=== PATIENT | female | born 1980 | race Caucasian/White ===

== ENCOUNTER 2017-06-04 11:05 | Outpatient (CLI) | payer OTHER | END 2017-06-04 14:40 | disposition home or self-care (01) | LOC: RX STUDY 11:05 | DX: K44.9 Diaphragmatic hernia without obstruction or gangrene (principal); R05 Cough; R12 Heartburn; E03.8 Other specified hypothyroidism; K20.8 Other esophagitis; K64.8 Other hemorrhoids ==

== ENCOUNTER 2017-06-28 17:47 | Inpatient (IN) | payer OTHER ==
[~2017-06-28] VITALS: Ht 170.2 cm; Wt 46.7 kg
[2017-07-30] MEDS ORDERED: TOPAMAX50 MG PO (10:50)
[2017-07-30] MEDS ORDERED: SYNTHROID75 MCG PO (10:57)
[2017-07-30] MEDS ORDERED: ZANTAC300 MG PO (10:57)
[2017-07-30] MEDS ORDERED: PROTONIX40 MG PO (10:57)
[2017-09-08] MEDS ORDERED: OXYC1TAB9 PO (13:27)
[2017-09-08] MEDS ORDERED: INTESTINEX680 M1 PO (13:27)
== END 2017-09-08 14:58 | disposition home or self-care (01) | DRG 330 ==
LOC: SURG 08-06 08:30 → O/R 08-06 12:00 → SURG 09-03 06:05 → O/R 09-03 06:05 → SURG 09-03 17:48
PROVIDERS: Obstetrics & Gynecology Gynecology; Surgery; Urology
PROC: 0UT54ZZ Resection of Right Fallopian Tube, Percutaneous Endoscopic Approach (ICD-10-PCS; 2017-09-03)
PROC: 0UT04ZZ Resection of Right Ovary, Percutaneous Endoscopic Approach (ICD-10-PCS; 2017-09-03)
PROC: 0DJD8ZZ Inspection of Lower Intestinal Tract, Via Natural or Artificial Opening Endoscopic (ICD-10-PCS; 2017-09-03)
PROC: 0W3P8ZZ Control Bleeding in Gastrointestinal Tract, Via Natural or Artificial Opening Endoscopic (ICD-10-PCS; 2017-09-03)
PROC: 0T788DZ Dilation of Bilateral Ureters with Intraluminal Device, Via Natural or Artificial Opening Endoscopic (ICD-10-PCS; 2017-09-03)
PROC: 3E0F7GC Introduction of Other Therapeutic Substance into Respiratory Tract, Via Natural or Artificial Opening (ICD-10-PCS; 2017-09-03)
PROC: 0DTN4ZZ Resection of Sigmoid Colon, Percutaneous Endoscopic Approach (ICD-10-PCS; principal; 2017-09-03 16:15)
PROC: 0DTP4ZZ Resection of Rectum, Percutaneous Endoscopic Approach (ICD-10-PCS; 2017-09-03 16:15)
PROC: 0DBU4ZZ Excision of Omentum, Percutaneous Endoscopic Approach (ICD-10-PCS; 2017-09-03 16:15)
PROC: 30233N1 Transfusion of Nonautologous Red Blood Cells into Peripheral Vein, Percutaneous Approach (ICD-10-PCS; 2017-09-04)
DX: N80.5 Endometriosis of intestine (principal); K56.690 Other partial intestinal obstruction; K91.840 Postprocedural hemorrhage of a digestive system organ or structure following a digestive system procedure; D62 Acute posthemorrhagic anemia; E03.8 Other specified hypothyroidism; I11.9 Hypertensive heart disease without heart failure; N80.1 Endometriosis of ovary

== ENCOUNTER → 2017-07-30 09:58 | Outpatient (CLI) | payer OTHER ==
[~2017-07-30 09:58] MED LIST: PROTONIX40 MG PO; SYNTHROID75 MCG PO; TOPAMAX50 MG PO; ZANTAC300 MG PO
== END | disposition home or self-care (01) ==
LOC: LAB 09:58
DX: E89.0 Postprocedural hypothyroidism (principal)

== ENCOUNTER 2021-06-11 06:25 | Day surgery (SDC) | payer OTHER ==
[~2021-06-11 06:25] MED LIST changes: +INTESTINEX680 M1 PO; +OXYC1TAB9 PO
== END 2021-06-11 11:05 | disposition home or self-care (01) ==
LOC: AMB-ENDOS 06:25
PROVIDERS: ATTEND Surgery
DX: K62.89 Other specified diseases of anus and rectum (principal); K64.8 Other hemorrhoids